=== PATIENT | female | born 1990 | race Caucasian/White ===

== ENCOUNTER 2017-11-22 11:25 | Emergency (ER) | payer OTHER ==
[~2017-11-22] VITALS: Ht 167.6 cm; Wt 137.0 kg
[2017-11-22] MEDS ORDERED: CLARITIN10 MG PO (11:41)
[2017-11-22] MEDS ORDERED: ZPAK PO (13:39)
[2017-11-22] MEDS ORDERED: MEDROLDOSEPACK PO (13:39)
[2017-11-22] MEDS ORDERED: TESSALON PERLE100 MG PO (13:39)
[2017-11-22] MEDS ORDERED: PROMETHAZINE V473 ML PO (13:39)
[2017-11-22] MEDS ORDERED: PROAIR HFA8.5 GM INH (13:39)
[2017-11-22 14:03] VITALS: BP 134/89
[2017-11-22 14:07] LABS: INFLUENZA A ANTIGEN None Detected (None Detect); INFLUENZA B ANTIGEN None Detected (None Detect)
== END 2017-11-22 14:04 | disposition home or self-care (01) ==
LOC: M.ERS 11:25
PROVIDERS: Physician Assistant
DX: J20.9 Acute bronchitis, unspecified (principal); Z90.89 Acquired absence of other organs; Z88.0 Allergy status to penicillin